=== PATIENT | female | born 1980 | race Caucasian/White ===

== ENCOUNTER 2025-03-19 14:32 | Emergency (ER) | payer MEDICAID ==
[~2025-03-19] VITALS: Ht 165.1 cm; Wt 60.0 kg
[2025-03-19 14:41] VITALS: O2SAT 100
[2025-03-19 15:12] LABS: BASOPHILS % 1.2 % (0.0-2.0); EOSINOPHILS % 4.4 % (0.0-5.0); HEMATOCRIT. 28.3 % (36.0-48.0); HEMOGLOBIN. 8.9 g/dL (12.0-16.0); LYMPHOCYTES % 43.4 % (20.0-50.0); MEAN PLATELET VOLUME 7.0 fl (7.4-10.4); MONOCYTES % 7.8 % (2.0-8.0); NEUTROPHILS % 43.2 % (40.0-76.0); PLATELET 426 x1000/uL (130-400); RED BLOOD CELL COUNT 4.20 mill/uL (4.2-5.4); RED CELL DISTRIBUTION WIDTH 16.8 % (11.6-14.6)
[2025-03-19 15:13] LABS: ADD RBC MORPHOLOGY YES
[2025-03-19 15:26] LABS: CREATININE 0.8 mg/dL (0.6-1.0); UREA NITROGEN BLOOD 8 mg/dL (9-23)
[2025-03-19 15:54] LABS: HCG SCREEN NEGATIVE
[2025-03-19 15:59] LABS: PLATELET ESTIMATE INCREASED
[2025-03-19 16:12] LABS: CLARITY URINE CLEAR (CLEAR); COLOR URINE YELLOW (YELLOW); GLUCOSE URINE NEGATIVE (NEGATIVE); KETONES URINE NEGATIVE (NEGATIVE); LEUKOCYTE ESTERASE URINE NEGATIVE (NEGATIVE); NITRITE URINE NEGATIVE (NEGATIVE); OCCULT BLOOD URINE NEGATIVE (NEGATIVE); PH URINE 5.5 (4.5-8.0); PROTEIN URINE NEGATIVE (NEGATIVE); SPECIFIC GRAVITY URINE 1.006 (1.005-1.030); UROBILINOGEN URINE 0.2 E.U./dL (0.2-1.0)
[2025-03-19 16:42] VITALS: BP 112/67; PULSE 86; RESP 19; TEMP 37; O2SAT 99
[2025-03-19] MEDS ORDERED: KETOROLAC 30MG/ML VIAL IM SCH (17:00)
== END 2025-03-19 17:08 | disposition home or self-care (01) ==
LOC: ER 14:32
DX: N30.10 Interstitial cystitis (chronic) without hematuria (principal); Z98.890 Other specified postprocedural states
CPT/HCPCS: 36415; 80048; 81003; 84703; 85025; 99283